=== PATIENT | female | born 1970 ===

== ENCOUNTER 2020-05-31 05:19 | Observation (INO) | payer MEDICARE, MEDICAID ==
[~2020-05-31] VITALS: Ht 167.6 cm; Wt 90.7 kg
[~2020-05-31 05:19] MED LIST: ALPR2TAB2 PO; CARI350T PO; IBUP-1223 PO; LACT1CAP37 PO; LISI-170 PO; MORP-30 PO
[2020-05-31] MEDS ORDERED: LACTATED RINGERS 1,000 ML IV SCH (05:43)
[2020-05-31 05:51] VITALS: BP 113/80
[2020-05-31] MEDS ORDERED: CHLORHEXIDINE 15 ML UDC MM ONE (06:00)
[2020-05-31] MEDS ORDERED: GABAPENTIN 300 MG CAPSULE PO ONE (06:00)
[2020-05-31] MEDS ORDERED: ROPIvacaine/PF 0.5%, 20 ML ONE (06:14)
[2020-05-31] MEDS ORDERED: TRANEXAMIC ACID 100 MG/ML, 10ML ONE ×2 (06:14)
[2020-05-31] MEDS ORDERED: KETOROLAC 60 MG/2 ML ONE (06:14)
[2020-05-31] MEDS ORDERED: ROPIvacaine/PF 0.5%, 30 ML ONE (06:15)
[2020-05-31] MEDS ORDERED: VANCOMYCIN 1,000 MG ONE (06:15)
[2020-05-31] MEDS ORDERED: SODIUM CHLORIDE 0.9% 50 ML ONE (06:15)
[2020-05-31] MEDS ORDERED: EPINEPHRINE 1 MG/ML, 1ML ONE (06:15)
[2020-05-31] MEDS ORDERED: OXYC10TA6 PO (06:27)
[2020-05-31] MEDS ORDERED: BACL20TA PO (06:27)
[2020-05-31] MEDS ORDERED: ACYC-114 PO (06:27)
[2020-05-31] MEDS ORDERED: DIAZ5TAB PO (06:27)
[2020-05-31] MEDS ORDERED: FLUO40CA9 PO (06:31)
[2020-05-31] MEDS ORDERED: MIDAZOLAM 1 MG/ML, 2ML ONE (06:44)
[2020-05-31] MEDS ORDERED: FENTANYL PF 250 MCG/5ML ONE (06:44)
[2020-05-31] MEDS ORDERED: hydrALAzine 20 MG/ML, 1ML ONE ×2 (06:50→09:43)
[2020-05-31] MEDS ORDERED: FENTANYL PF 100 MCG/2ML ONE ×4 (07:19→08:31)
[2020-05-31] MEDS ORDERED: hydrALAzine 20 MG/ML, 1ML IV PRN (07:30)
[2020-05-31] MEDS ORDERED: ONDANSETRON 2MG/ML, 2ML ONE (07:30)
[2020-05-31] MEDS ORDERED: NEOSTIGMINE 1 MG/ML, 10ML ONE (07:30)
[2020-05-31] MEDS ORDERED: GLYCOPYRROLATE 0.2MG/1ML, 5ML ONE (07:30)
[2020-05-31] MEDS ORDERED: ONDANSETRON 2MG/ML, 2ML IVPush PRN (07:30)
[2020-05-31] MEDS ORDERED: PROMETHAZINE 25 MG/ML, 1ML IVPush PRN (07:30)
[2020-05-31] MEDS ORDERED: OXYcodone 5 MG/5 ML ORAL.SOL UDC PO PRN (07:30)
[2020-05-31] MEDS ORDERED: PROMETHAZINE 25 MG SUPP PR PRN (07:30)
[2020-05-31] MEDS ORDERED: PROPOFOL 10 MG/ML, 20ML ONE (07:30)
[2020-05-31] MEDS ORDERED: CEFAZOLIN 1,000 MG ONE (07:30)
[2020-05-31] MEDS ORDERED: DEXAMETHASONE 4 MG/ML, 1ML ONE (07:30)
[2020-05-31] MEDS ORDERED: ROCURONIUM 10MG/ML,5ML ONE (07:30)
[2020-05-31] MEDS ORDERED: SUCCINYLCHOLINE 20 MG/ML, 10ML ONE (07:30)
[2020-05-31] MEDS ORDERED: LIDOCAINE-MPF 2% ,5ML ONE ×2 (08:07)
[2020-05-31] MEDS ORDERED: PROMETHAZINE 25 MG/ML, 1ML ONE (08:17)
[2020-05-31] MEDS: FENTANYL PF 100 MCG/2ML IV PRN ×4 (08:22→08:42)
[2020-05-31] MEDS ORDERED: LORazepam 2 MG/ML, 1ML ONE (08:24)
[2020-05-31] MEDS ORDERED: LABETALOL 5MG/ML, 20ML ONE (08:24)
[2020-05-31] MEDS: LABETALOL 5MG/ML, 20ML IV PRN ×4 (08:26→09:23)
[2020-05-31] MEDS ORDERED: LORazepam 2 MG/ML, 1ML IVPush PRN (08:30)
[2020-05-31] MEDS ORDERED: ONDANSETRON 2MG/ML, 2ML IV PRN (08:30)
[2020-05-31] MEDS ORDERED: ACETAMINOPHEN 650 MG/20.3 ML UDC PO PRN (08:30)
[2020-05-31] MEDS ORDERED: MAGNESIUM HYDROXIDE 8%, 30ML UDC PO PRN (08:30)
[2020-05-31] MEDS ORDERED: OXYcodone IR 5MG TABLET PO PRN ×2 (08:30)
[2020-05-31] MEDS ORDERED: ZOLPIDEM 5MG TABLET PO PRN (08:30)
[2020-05-31] MEDS ORDERED: BISACODYL 10 MG SUPP PR PRN (08:30)
[2020-05-31] MEDS ORDERED: SENNA/DOCUSATE TABLET PO PRN (08:30)
[2020-05-31] MEDS ORDERED: DIPHENHYDRAMINE 25 MG CAPSULE PO PRN (08:30)
[2020-05-31] MEDS ORDERED: ONDANSETRON 4 MG TABLET PO PRN (08:30)
[2020-05-31] MEDS ORDERED: HYDROcodone/APAP 5/325 TABLET PO PRN (08:30)
[2020-05-31] MEDS ORDERED: DIAZEPAM 5 MG/ML, 2ML ONE (08:37)
[2020-05-31] MEDS ORDERED: OXYcodone 5 MG/5 ML ORAL.SOL UDC ONE (08:48)
[2020-05-31] MEDS ORDERED: HYDROmorphone 2 MG/ML, 1ML ONE (08:56)
[2020-05-31] MEDS: HYDROmorphone 1 MG/ML, 1ML INJ IVPush PRN ×4 (08:58→09:37)
[2020-05-31] MEDS ORDERED: DIAZEPAM 5 MG/ML, 2ML IV PRN (09:00)
[2020-05-31] MEDS: LISINOPRIL 20 MG TABLET PO SCH (09:00)
[2020-05-31] MEDS ORDERED: METHOCARBAMOL 1,000 MG in DEXTROSE 5% 100 ML IV ONE (09:00)
[2020-05-31] MEDS: DIAZEPAM 5 MG TABLET PO SCH ×4 (09:00→23:10)
[2020-05-31 10:45] VITALS: BP 149/90
[2020-05-31] MEDS: DOCUSATE 100 MG CAPSULE PO SCH ×2 (12:11→20:49)
[2020-05-31] MEDS: FLUOXETINE HCL 20 MG CAPSULE PO SCH (12:11)
[2020-05-31] MEDS: NS + 20MEQ KCL 1,000 ML IV SCH ×2 (12:12→19:55)
[2020-05-31 13:45] VITALS: BP 123/75
[2020-05-31] MEDS ORDERED: KETOROLAC 30 MG/1 ML ONE (15:03)
[2020-05-31] MEDS: KETOROLAC 30 MG/1 ML IVPush PRN ×2 (15:09→23:10)
[2020-05-31] MEDS: CEFAZOLIN PMX 2GM/50ML 50 ML IVPB SCH ×2 (15:14→23:10)
[2020-05-31] MEDS: OXYcodone IR 5MG TABLET PO PRN ×2 (16:51→20:50)
[2020-05-31] MEDS: ASPIRIN 81 MG TABLET EC PO SCH (18:08)
[2020-05-31 18:11] VITALS: BP 100/66
[2020-05-31] MEDS ORDERED: BACLOFEN 10 MG TABLET PO SCH (21:00)
[2020-05-31] MEDS ORDERED: HYDROmorphone 1 MG/ML, 1ML INJ IV PRN (21:30)
[2020-05-31 23:30] VITALS: BP 98/62
[2020-06-01] MEDS: OXYcodone IR 5MG TABLET PO PRN ×4 (00:27→12:16)
[2020-06-01 03:33] VITALS: BP 100/64
[2020-06-01] MEDS ORDERED: DEXAMETHASONE 4 MG/ML, 1ML IVPush SCH (06:00)
[2020-06-01] MEDS: ASPIRIN 81 MG TABLET EC PO SCH (06:24)
[2020-06-01] MEDS: DIAZEPAM 5 MG TABLET PO SCH ×2 (06:24→07:16)
[2020-06-01 06:44] VITALS: BP 107/69
[2020-06-01] MEDS: FLUOXETINE HCL 20 MG CAPSULE PO SCH (08:32)
[2020-06-01] MEDS: DOCUSATE 100 MG CAPSULE PO SCH (08:33)
[2020-06-01] MEDS: LISINOPRIL 20 MG TABLET PO SCH ×2 (08:33→08:44)
[2020-06-01] MEDS: NS + 20MEQ KCL 1,000 ML IV SCH (08:34)
[2020-06-01 12:11] VITALS: BP 112/76
== END 2020-06-01 12:45 | disposition home or self-care (01) ==
LOC: OUT 05:19 → 4NE 10:36 → OUT 22:27 → 4NE 22:28 → DCLOUNGE 06-01 12:28
PROVIDERS: ADMIT Orthopaedic Surgery; ATTEND Orthopaedic Surgery
DX: Z03.818 Encounter for observation for suspected exposure to other biological agents ruled out (principal); M16.12 Unilateral primary osteoarthritis, left hip; M81.0 Age-related osteoporosis without current pathological fracture; M06.9 Rheumatoid arthritis, unspecified; G89.29 Other chronic pain; I10 Essential (primary) hypertension; Z87.891 Personal history of nicotine dependence; Z79.899 Other long term (current) drug therapy; Z90.710 Acquired absence of both cervix and uterus; Z87.39 Personal history of other diseases of the musculoskeletal system and connective tissue
CPT/HCPCS: 27130; 36415; 72170; 73501; 76000; 85014; 85018; 87635; 96361; 96365; 96366; 96375; 96376; 97110; 97161; C1713; C1776; G0378; J0171; J0330; J0360; J0690; J1100; J1170; J1885; J2060; J2250; J2405; J2550; J2704; J2710; J2795; J2800; J3010; J3360; J3370; J3480; J3490; J7120